=== PATIENT | female | born 1950 | race Caucasian/White ===

== ENCOUNTER → 2017-12-12 | Day surgery (SDC) | payer OTHER, MEDICARE ==
[~2017-12-12] VITALS: Ht 165.1 cm; Wt 99.8 kg
[~2017-12-12] MED LIST: ASPIRIN EC81 M1 PO; BUPROPION XL300 M1 PO; CYMBALTA60 M1 PO; ECONAZOLE NITRA15 GM TOP; LASIX40 M1 PO; LEVOTHYROXINE100 MC1 PO; LIDODERM1 EACH TOP; LIPITOR10 M1 PO; LISINOPRIL40 M1 PO; LOPRESSOR50 M1 PO; METFORMIN HCL500 M3 PO; NEURONTIN300 M1 PO; PERCOCET 10-321 EACH PO; PROAIR HFA8.5 GM INH; SINGULAIR10 M1 PO; TOPAMAX100 M1 PO
--- NOTE | 2017-12-12 08:23 | Operative Report ---
Operative/Inv Procedure Report Surgery Date: 12/12/17 Name of Procedure: right extracorporeal shockwave lithotripsy Pre-Operative Diagnosis: right kidney stone 1.3 cm Post-Operative Diagnosis: same Estimated Blood Loss: scant Surgeon/Design Analyst: Maegan Smith MD Anesthesia: local monitored anesthesi Drains: stent 6x24cm Specimens: none Complications: none Condition: stable Operative Indication: large right renal stone with renal colic Operative/Procedure Note Note: 67yo female with a hx of kidney stones. She has had stone procedures before (3 ESWLs). She has been having right renal colic from the 1.3 cm stone in her right kidney. She was consented for right ESWL with stent and given the risks, benefits and alternatives in the office and holding area. All questions were answered in the holding area. Patient was taken to the operating room and placed on the OR table. Time out was performed. Patient was positioned to optimize the surgery. IV antibiotics were infused. IV sedation was given. The shockwaves were started after baseline imaging with US and Flouroscopy. The 1.3 cm collection of stones was in the lower pole. 2500 shocks were delivered in total. 200 shocks were delivered 200 times at 1-17 power, then 200 shocks at 18-19 power and finally 2000 shocks at 20 power. The stone was visibly changed at the end of the 2500 shocks. Cystoscopy was performed and a wire was placed up the right ureteral orifice without difficulty. A stent was placed over the wire and seen to be in good position by US. The wire was removed. The proximal end was in the renal pelvis by US and th distal curl was in the bladder. A final KUB was taken and the stent was seen to be in good position. Patient tolerated the procedure well. She was transferred to recovery room in stable condition. Findings: large right renal stone 1.3cm in size Discharge Disposition: Same Day Admissions
== END ==
LOC: STS 02:38
DX: N20.0 Calculus of kidney (principal); Z87.442 Personal history of urinary calculi; Z87.891 Personal history of nicotine dependence; E03.9 Hypothyroidism, unspecified; E11.9 Type 2 diabetes mellitus without complications; I10 Essential (primary) hypertension
CPT/HCPCS: C2617; J0690; J2250

== ENCOUNTER → 2018-01-13 | Day surgery (SDC) | payer OTHER, MEDICARE ==
[~2018-01-13] VITALS: Ht 165.1 cm; Wt 99.8 kg
[~2018-01-13] MED LIST changes: +CALCIUM MAGNES1 EAC1 PO; +NYSTOP60 GM TOP; +SALMON OIL 1,01 EACH PO; +ZEASORB71 GM TOP; +[UNRECOGNIZED DRUG - OTHER] NASB; +[UNRECOGNIZED DRUG - OTHER] TOP
--- NOTE | 2018-01-13 16:07 | RADIOLOGY REPORT ---
EXAMINATION: CR ABDOMEN/INTRAOPERATIVE FLUOROSCOPY CLINICAL INDICATION: Right ureteroscopy with laser. The tip of the laser is missing. Evaluate for retained foreign body. COMPARISON: CT scan of the abdomen dated 11/21/2017. TECHNIQUE/FINDINGS: Fluoroscopic equipment was dedicated to the operating room for the performance of an intraoperative procedure. Several spot films (3) were acquired and are archived in PACS. Please refer to operative notes for procedural detail. On the first image, a right ureteral stent and guidewire are seen in place. Right renal pelvic staghorn type calculus is noted. No definite unexpected radiopaque foreign body is seen. EKG leads noted. On the second and third images, contrast injection has been made and there appears to be extravasation of the contrast, perhaps related to urothelial rupture. These findings obscure the soft tissues in the right renal pelvic and peripelvic regions and significantly limit the assessment for a tiny retained laser tip. Confident assessment for retained laser tip cannot be performed. FLUOROSCOPY TIME: 23 seconds. IMPRESSION: 1. Administrative dictation for intraoperative fluoroscopy and image archiving in PACS. Please refer to operative notes for details. 2. No definite radiopaque laser tip is seen, though evaluation of the second and third images is essentially nondiagnostic given the presence of extensive contrast. This critical result was discussed with Dr. Maegan Smith 01/13/2018, 3:50 PM and it was ascertained that the content and urgency of this report was understood at the time of direct communication.
--- NOTE | 2018-01-13 17:33 | Operative Report ---
Operative/Inv Procedure Report Surgery Date: 01/13/18 Name of Procedure: right URS with laser lithotripsy and RPG and stent placement Pre-Operative Diagnosis: right renal stones with stent in place Post-Operative Diagnosis: same Estimated Blood Loss: less than 50ml Surgeon/Whale Trainer: Maegan Smith MD Anesthesia: laryngeal mask airway Drains: 6x24cm stent Specimens: stone fragments Complications: tiny laser fiber fragment in renal pelvis <2mm Condition: stable Operative Indication: right renal stones large and multiple Operative/Procedure Note Note: This an operative dictation on patient Fouzia CARMONA. She is a 67-year-old female with a history of very large stone burden on the right side. She was status post right extracorporeal shockwave lithotripsy with stent placement couple weeks ago. However she has not passed any stone fragments but she admits that she has not been drinking much water. She has been having bothersome urinary incontinence with the stent in place. She wished to proceed with another surgical stone procedure. Was recommended that she have a right ureteroscopy with laser lithotripsy and stent removal and stent placement. She understands that it's very large stone burden and that is may require another procedure. Patient was given the risks benefits and alternatives of the surgery and she consented. Patient was taken to the operating room placed on the operating table in supine position. Timeout was performed. IV antibodies were infused. She was placed in the dorsolithotomy position and prepped and draped in standard sterile fashion. Cystoscopy was performed and the bladder was globally inspected there were no abnormalities appreciated. The right ureteral stent was easily visualized. This was grasped and brought back out through the meatus. It was cannulated with a sensor guidewire and the stent was removed. A dual-lumen catheter was then you used to place a second superstiff wire. The superstiff wire was then used to place a ureteral access sheath 35 cm in length. This was all done under fluoroscopic guidance. The inner sheath was used first followed by the inner and outer sheath together. The inner sheath and the wire was then removed and a flexible digital ureteroscope was placed up into the kidney. The stone was easily identified right in the renal pelvis. However she also had stones in the mid and lower pole as well. A 237 fiber was then used to fragment the stones into smaller sizes. This took a considerable amount of time greater than an hour and a half. The laser needed to be stripped twice. Attempted using a larger laser fiber but was unsuccessful due to the lower pole location of the stone as well as the large size of the fiber that would not go through the ureteroscope. The stone was very large and hard and the lower pole made it difficult to access this stone. A 0 tip basket was then used to remove multiple fragments of the lasered stones. These were passed off the field and sent for stone analysis. There was at least 2 cm of the stones in total. However during the removal of the stones at one point there was some fat seen and so a retrograde pyelogram was performed and extravasation was seen at the UPJ. As result given the bleeding that was being caused by the laser previously and the extravasation, it was deemed appropriate to stop the surgery at this point. The ureteroscope was removed with the ureteral access sheath while examining the ureter on the way out and no stones were seen. There was still at least half the stone burden that remained in the renal pelvis and lower pole. 6 x 24 cm ureteral stent was placed over the sensor wire with the cystoscope fluoroscopically and cystoscopically. Seen to be in good position so the wire was removed. Bladder was empty. Patient was cleaned of the Betadine solution. Patient tolerated the procedure well. All images were saved as the surgery was performed. Findings: Large hard crystalline stone in the renal pelvis and in the mid and lower poles. Very hard to fragment.
== END ==
LOC: STS 04:14
DX: N20.0 Calculus of kidney (principal); Z87.442 Personal history of urinary calculi; E11.9 Type 2 diabetes mellitus without complications; Z79.84 Long term (current) use of oral hypoglycemic drugs; I10 Essential (primary) hypertension; E03.9 Hypothyroidism, unspecified; Z87.891 Personal history of nicotine dependence
CPT/HCPCS: 74018; C2617; J0690; J1885; J2405

== ENCOUNTER 2018-02-06 01:22 | Observation (INO) | payer OTHER, MEDICARE ==
[~2018-02-06] VITALS: Ht 165.1 cm; Wt 95.3 kg
--- NOTE | 2018-02-06 12:22 | PN- Urology ---
Subjective Subjective: Post op check Awake and alert post op No specific complaints other than burning with urination which was present pre op She has been taking pyridium with some relief Objective Vital Signs and I&Os General: alert and oriented times three CHest: clear anteriorly bilaterally, Abd: soft, good bs Ext: warm, no edema, no calf tenderness voiding without difficulty Assessment/Plan Assessment/Plan 67yo female s/p cysto staying overnight in observation per Dr Smith Will plan to restart all home meds - ordered add pyridium ada diet likely dc in am Core Measures Venous Thromboembolism VTE Risk Factors Surgery No Mechanical VTE Prophylaxis d/t N/A MechProphylax Ordered No VTE Pharm Prophylaxis d/t LowRisk-No Interven Req'd
[2018-02-06 12:38] VITALS: BP 136/80
[2018-02-06] MEDS ORDERED: OMEPRAZOLE20 M3 PO (13:12)
--- NOTE | 2018-02-06 17:08 | RADIOLOGY REPORT ---
EXAMINATION: CR ABDOMEN/INTRAOPERATIVE FLUOROSCOPY CLINICAL INDICATION: Right ureteroscopy with laser and stent. COMPARISON: KUB dated 01/25/2018. TECHNIQUE/FINDINGS: Fluoroscopic equipment was dedicated to the operating room for the performance of an intraoperative procedure. Several (6) spot films were acquired and are archived in PACS. Please refer to operative notes for procedural detail. FLUOROSCOPY TIME: 0.09 minutes. IMPRESSION: Administrative dictation for intraoperative fluoroscopy and image archiving in PACS. Please refer to operative notes for details.
[2018-02-06 21:16] VITALS: BP 140/80
[2018-02-07 06:35] VITALS: BP 140/70
--- NOTE | 2018-02-07 09:04 | PN- Urology ---
Subjective Subjective: Patient c/o left lower abdominal pain, that began prior to admission. She reports mild discomfort urinating. She denies any other urinary complaints. She is tolerating a diet, without nausea or vomiting. She is eager to go home today. Objective Vital Signs and I&Os Vital Signs Date Time Temp Pulse Resp B/P B/P Pulse O2 O2 Flow FiO2 Mean Ox Delivery Rate 02/07 0635 97.7 62 20 140/70 95 Room Air 02/06 2116 97.9 56 18 140/80 95 Room Air 02/06 2058 64 142/68 02/06 1238 97.9 54 18 136/80 95 Room Air Intake & Output 02/07 1600 02/07 0800 02/07 0000 02/06 1600 02/06 0800 02/06 0000 Intake Total 700 Output Total 1300 600 Balance -1300 100 Intake, Oral 700 Output, Urine 1300 600 Patient 210 lb Weight Physical Exam: General: resting comfortably in nad CHest: CTAB Abd: soft, good bs, nondistended, nontender throughout, no signs of peritonitis Ext: R BKA, no edema, no calf tenderness Assessment/Plan Assessment/Plan 67 F POD 1 s/p right ureteroscopy with toby litho, stone extration and stent replacement secondary to right renal stone, stable for discharge Cont ada diet Home meds ordered Cont pyridium prn Cont observation status in anticipation of d/c today Will d/w Dr. Smith Core Measures Venous Thromboembolism VTE Risk Factors Surgery No Mechanical VTE Prophylaxis d/t N/A MechProphylax Ordered No VTE Pharm Prophylaxis d/t LowRisk-No Interven Req'd
[2018-02-07 09:53] VITALS: BP 118/78
--- NOTE | 2018-02-07 11:48 | Operative Report ---
Operative/Inv Procedure Report Surgery Date: 02/06/18 Name of Procedure: right ureteroscopy with laser lithotripsy and stone extraction, stent replacement Pre-Operative Diagnosis: right renal stones Post-Operative Diagnosis: same Estimated Blood Loss: scant Surgeon/Luncheonette Operator: Maegan Smith MD Anesthesia: laryngeal mask airway Drains: 6x24cm stent Specimens: stone fragments Complications: none Condition: stable Operative Indication: right renal stones Operative/Procedure Note Note: 67-year-old female Fouzia Chong with history of large right renal stones. She has undergone 2 corporal shockwave lithotripsies and ureteroscopy with still a large stone burden. She is very bothered by the ureteral stent with urinary incontinence. She is here today for hopefully a final ureteroscopy with laser lithotripsy and stone extraction and stent replacement. She understands the risks benefits and alternatives of the procedure and all questions were answered. Consent was signed. Patient was taken to the operating placed on the operating table in supine position. Timeout was performed. IV interlocks were infused. LMA anesthesia was started and the patient was placed in the dorsal lithotomy position. SCDs was placed on the left leg as the right lower extremity prosthesis. She was prepped and draped in the standard sterile fashion. Cystoscopy was performed and the stent was grasped and brought out to the urethral opening. This attempted to be cannulated with the solo guidewire but was unsuccessful. As result a cystoscopy was performed again and a solo guidewire was placed up the renal pelvis without difficulty with fluoroscopic guidance. A second safety superstiff wire was then placed with the dual-lumen catheter. This was clamped as a safety wire. A 25 cm ureteral access sheath was then placed first the inner sheath followed by the inner and outer sheath together. This was done without difficulty. Fluoroscopic guidance was used throughout the case. The flexible digital ureteroscope was then placed into the renal pelvis without issue. All the calyces were again examined and all the stones were in the lower pole. She had a large conglomerate of fragmented stones with a few larger stones. The larger stones were fragmented with a 273 laser fiber to smaller fragments. 0 tip nitinol basket was then used to remove the stones. This took considerable time as there were large amounts and difficult to grasp. However we did make lightheaded way and proximally 1.5-2 cm conglomerate of stone fragments were removed. Smaller fragments that were too small to grasp with the basket were left to be passed by the patient with ingestion of water. There was no sign of injury. Again all the calyces were examined and no large stones were remaining. The small tiny laser tip was seen in the renal pelvis during previous case was not visible during this case. The stone fragments were sent to pathology. The ureteroscope was removed along with the access sheath and the ureter was examined on the way out. No injury was appreciated. In no other stones were seen. The safety wire was then used with the cystoscope to place a 6 x 24 cm Coloplast ureteral ureteral stent. This was in good position with the proximal end in the renal pelvis and the distal torsion in the bladder which was seen fluoroscopically and cystoscopically. The patient tolerated the procedure well she was transferred to the acromion room stable condition. Findings: Large conglomerate of stacked fragmented stones in the lower pole Discharge Disposition: PACU
--- NOTE | 2018-02-07 12:20 | RADIOLOGY REPORT ---
EXAMINATION: XR ABDOMEN MULTIPLE VIEWS CLINICAL INDICATION: Abdominal pain. Right ureteral stent. History of staghorn calculus, right kidney. COMPARISON: CT of the abdomen and pelvis on 11/21/2017. KUB on 01/25/2018. Intraoperative fluoroscopy on 02/06/2018. (Ureteroscopy and laser with stent placement). TECHNIQUE: AP supine and erect views of the abdomen. 3 exposures. FINDINGS: The patient has an indwelling right ureteral stent the proximal end of which is in the vicinity of the right renal pelvis and the distal end in the urinary bladder. The staghorn calculi in the right kidney are not visible on today's exam. No ureteral stones are appreciated. Incidental note is made of interposition of the hepatic flexure of the colon between the anterior abdominal wall and anterior surface of the liver. IMPRESSION: The right ureteral stent has not migrated and is thought to be in the normal position. No calculi seen.
== END 2018-02-07 13:24 ==
LOC: STS 01:22 → PACUH 11:45 → ENRESERV 12:12 → ENTRNSPT 12:24 → EDTRNSPTSTS 12:42 → 2NB 12:45 → CMPTRNSPT 13:01 → ENPENDDIS 02-07 09:22 → 2NB 02-07 13:24
DX: N20.0 Calculus of kidney (principal); I10 Essential (primary) hypertension; J44.9 Chronic obstructive pulmonary disease, unspecified; E03.9 Hypothyroidism, unspecified; E11.9 Type 2 diabetes mellitus without complications; K21.9 Gastro-esophageal reflux disease without esophagitis; G43.909 Migraine, unspecified, not intractable, without status migrainosus; Z86.14 Personal history of Methicillin resistant Staphylococcus aureus infection; Z79.84 Long term (current) use of oral hypoglycemic drugs
CPT/HCPCS: 6040; 74018; 74021; 82355; 87086; 87088; G0378; J0131; J0690; J1100; J1815; J2405; J3490